=== PATIENT | female | born 1990 | race African-American/Black ===

== ENCOUNTER 2017-03-15 15:31 | Emergency (ER) | payer MEDICAID ==
--- NOTE | 2017-03-15 16:38 | ER Document Report ---
ED GI/ - General Chief Complaint: Abdominal Injury Stated Complaint: STOMACH PAIN Time Seen by Provider: 03/15/17 16:08 Notes: This is a pleasant 26-year-old female patient who was seen in the emergency department last night. Has 5 children at home. Did not have anybody else to watch the children so had to leave prior to the results of her pelvic ultrasound. Patient thinks that she is likely . Having some crampy lower abdominal pain. Denies any deep bleeding at this time. Does also have some pain in the epigastric region. No vomiting. Has had nausea on a daily basis. Never had a miscarriage. Has been 5 times and has 5 live births. TRAVEL OUTSIDE OF THE [place] IN LAST 30 DAYS: No - HPI Patient complains to provider of: Abdominal pain, Onset: Yesterday Timing/Duration: Gradual Quality of pain: Dull Severity at maximum: Moderate Severity in ED: Moderate Pain Level: 3 Location: Epigastric, Suprapubic Vaginal bleeding (Compared to normal period): None - Related Data Allergies/Adverse Reactions: No Known Allergies Allergy (Verified 03/15/17 15:34) Past Medical History - General Information source: Patient - Social History Smoking Status: Never Smoker Cigarette use (# per day): No Frequency of alcohol use: Rare Drug Abuse: None Lives with: Spouse/Significant other Family History: Reviewed & Not Pertinent Patient has suicidal ideation: No Patient has homicidal ideation: No - Past Medical History Cardiac Medical History: Reports: Hx Hypertension - gestiational Renal/ Medical History: Denies: Hx Peritoneal Dialysis Past Surgical History: Reports: Hx Section - x1 Review of Systems - Review of Systems Constitutional: denies: Fever, Malaise, Weakness EENT: denies: Eye pain, Eye discharge, Blurred vision, Throat pain, Difficulty swallowing, Mouth swelling Cardiovascular: denies: See HPI, Palpitations, Heart racing, Dyspnea, Syncope, Dizziness, Lightheaded Respiratory: denies: Cough, Hurts to breathe, Short of breath, Wheezing Gastrointestinal: Abdominal pain, Nausea, Vomiting. denies: Diarrhea Genitourinary: No symptoms reported Female Genitourinary: . denies: Heavy/abnormal periods, Irregular period, Vaginal discharge, Vaginal bleeding, Vaginal odor Musculoskeletal: denies: Back pain, Gout, Joint pain Skin: denies: Dryness, Lesions, Rash Hematologic/Lymphatic: denies: Anemia, Blood clots, Easy bleeding, Easy bruising Neurological/Psychological: denies: Weakness, Lost consciousness, Headaches, Numbness Physical Exam - Vital signs Vitals: Temp Pulse Resp BP Pulse Ox 99.6 F 72 16 132/86 H 100 03/15/17 15:48 03/15/17 15:48 03/15/17 15:48 03/15/17 15:48 03/15/17 15:48 Interpretation: Normal - General General appearance: Appears well, Alert - HEENT Head: Normocephalic, Atraumatic Eyes: Normal Pupils: PERRL - Respiratory Respiratory status: No respiratory distress Chest status: Nontender Breath sounds: Normal Chest palpation: Normal - Cardiovascular Rhythm: Regular Heart sounds: Normal auscultation Murmur: No - Abdominal Inspection: Normal Distension: No distension Bowel sounds: Normal Tenderness: Nontender Organomegaly: No organomegaly - Back Back: Normal, Nontender - Extremities General upper extremity: Normal inspection, Nontender, Normal color, Normal ROM , Normal temperature General lower extremity: Normal inspection, Nontender, Normal color, Normal ROM , Normal temperature, Normal weight bearing. No: Jade's sign - Neurological Neuro grossly intact: Yes Cognition: Normal Orientation: AAOx4 Abril Coma Scale Eye Opening: Spontaneous Abril Coma Scale Verbal: Oriented Abril Coma Scale Motor: Obeys Commands [place] Coma Scale Total: 15 Speech: Normal Motor strength normal: LUE, RUE, LLE, RLE Sensory: Normal - Psychological Associated symptoms: Normal affect, Normal mood - Skin Skin Temperature: Warm Skin Moisture: Dry Skin Color: Normal Course - Re-evaluation Re-evalutation: 03/15/17 20:38 Obstetrics Ultrasound 03/15/17 19:08 IMPRESSION: No IUP identified. 6 cm fluid collection in the right adnexa without color flow on Doppler interrogation, uncertain etiology. Mild cul-de- sac free fluid. 03/15/17 20:54 Patient vital signs are normal. And not an excruciating pain at this time. HCG level is 1000. Will need to have her hCG really tested on Saturday. I will give patient follow-up information for Dr. Samaniego and give strict warning signs with regards to ectopic. Patient seems reliable. This is not her first so she knows what to expect is 4 hours pain cramping and everything else. - Vital Signs Vital signs: Temp Pulse Resp BP Pulse Ox 99.6 F 72 18 132/86 H 100 03/15/17 15:48 03/15/17 15:48 03/15/17 17:00 03/15/17 15:48 03/15/17 15:48 - Laboratory Result Diagrams: 03/15/17 17:10 03/15/17 17:10 Laboratory results interpreted by me: 03/15/17 03/15/17 17:10 17:10 Hgb 10.5 L Hct 33.3 L MCV 70 L MCH 22.2 L MCHC 31.6 L RDW 19.9 H Sodium 136.4 L Beta HCG, Quant 1088.70 H Discharge - Discharge Clinical Impression: First trimester Condition: Good Disposition: HOME, SELF-CARE Additional Instructions: Ectopic Precaution An ultrasound was done and the was not seen in either the fallopian tubes or the uterus. It's possible you already had a miscarriage or that it's too early in your to see the fetus in the uterus. But the other possibility is that you have an ectopic (tubal) . Usually if an ectopic is too small to see, it's safe for you to go home. You should have a repeat quantitative HCG blood test. The level doubles every two days in normal pregnancies. If the level is falling rapidly, it means you've had a miscarriage. A repeat ultrasound in about a week may show the . If an ectopic is identified early, it can sometimes be treated without surgery. Return at once if you develop severe, sharp, and sudden pain in the lower abdomen, pain in the shoulder area, severe lightheadedness or fainting, or heavy bleeding (more than menstrual bleeding). Please return on Saturday for a repeat quantitative hCG level. Return sooner if symptoms are getting worse.
[2017-03-15 17:32] LABS: ABSOLUTE EOSINOPHILS # (AUTO) 0.2 10^3/uL (0.0-0.6); ABSOLUTE LYMPHOCYTES (AUTO) 1.9 10^3/uL (0.5-4.7); ABSOLUTE MONOCYTES (AUTO) 0.5 10^3/uL (0.1-1.4); ABSOLUTE NEUT (AUTO) 2.9 10^3/uL (1.7-8.2); BASOPHILS % (AUTO) 0.6 % (0-2); EOSINOPHILS % (AUTO) 3.3 % (0-6); HEMATOCRIT 33.3 % (36.0-47.0); HEMOGLOBIN 10.5 g/dL (12.0-15.5); LYMPHOCYTES % (AUTO) 34.6 % (13-45); MEAN CORPUSCULAR HEMOGLOBIN 22.2 pg (27.0-33.4); MEAN CORPUSCULAR HGB CONC 31.6 g/dL (32.0-36.0); MEAN CORPUSCULAR VOLUME 70 fl (80-97); MONOCYTES % (AUTO) 9.4 % (3-13); PLATELET COUNT 237 10^3/uL (150-450); RED BLOOD COUNT 4.74 10^6/uL (3.72-5.28); RED CELL DISTRIBUTION WIDTH 19.9 % (11.5-14.0); SEGMENTED NEUTROPHILS % (AUTO) 52.1 % (42-78); TOTAL CELLS COUNTED % (AUTO) 100 %; WHITE BLOOD COUNT 5.6 10^3/uL (4.0-10.5)
[2017-03-15 17:53] LABS: ALANINE AMINOTRANSFERASE 36 U/L (9-52); ALBUMIN 3.8 g/dL (3.5-5.0); ALKALINE PHOSPHATASE 57 U/L (38-126); ANION GAP 7 (5-19); ASPARTATE AMINO TRANSFERASE 23 U/L (14-36); BILIRUBIN,DIRECT 0.2 mg/dL (0.0-0.4); BILIRUBIN,TOTAL 0.4 mg/dL (0.2-1.3); BLOOD UREA NITROGEN 7 mg/dL (7-20); CALCIUM 9.4 mg/dL (8.4-10.2); CARBON DIOXIDE 25 mmol/L (22-30); CHLORIDE 104 mmol/L (98-107); GLUCOSE 85 mg/dL (75-110); LIPASE 77.2 U/L (23-300); POTASSIUM 3.8 mmol/L (3.6-5.0); SODIUM 136.4 mmol/L (137-145)
--- NOTE | 2017-03-15 20:14 | RADIOLOGY REPORT (SQ) ---
EXAM DESCRIPTION: U/S OB TRANSVAGINAL W/O DOP COMPLETED DATE/TIME: 03/15/2017 8:01 pm REASON FOR STUDY: worsenimg pelvic pain, + preg COMPARISON: None. TECHNIQUE: Dynamic and static grayscale images acquired of the pelvis via transvaginal approach and recorded on PACS. Additional selected color Doppler and spectral images recorded. LIMITATIONS: None. FINDINGS: UTERUS: Contour normal. No mass. ENDOMETRIAL STRIPE: No focal or generalized thickening. No masses. CERVIX: No nabothian cysts. RIGHT OVARY: Ovary not visualized. LEFT OVARY: Ovary not visualized. FREE FLUID: 6 cm fluid collection in the right adnexa without color flow on Doppler interrogation. M ild cul-de-sac free fluid. OTHER: No other significant finding. MEASUREMENTS: UTERUS: 11.4 x 4.6 x 6.6 cm ENDOMETRIAL STRIPE: 2.0 cm RIGHT OVARY: Not visualized. LEFT OVARY: Not visualized. IMPRESSION: No IUP identified. 6 cm fluid collection in the right adnexa without color flow on Doppl er interrogation, uncertain etiology. Mild cul-de-sac free fluid. TECHNICAL DOCUMENTATION: JOB ID: [id number] [place]-72 2010 [employer]- All Rights Reserved
[2017-03-15 21:13] VITALS: BP 134/99
== END 2017-03-15 21:13 | disposition home or self-care (01) ==
LOC: ER 15:31
DX: R10.30 Lower abdominal pain, unspecified (principal); R10.13 Epigastric pain
CPT/HCPCS: 36415; 76817; 80053; 83690; 84702; 85025; 86900; 86901; 99284

== ENCOUNTER 2017-09-26 23:49 | Emergency (ER) | payer MEDICAID ==
[2017-09-27 00:09] VITALS: BP 137/87
== END 2017-09-27 02:55 | disposition left against medical advice (07) ==
LOC: ER 23:49
DX: Z53.21 Procedure and treatment not carried out due to patient leaving prior to being seen by health care provider (principal)

== ENCOUNTER 2017-11-10 03:40 | Emergency (ER) | payer MEDICAID ==
[2017-11-10 03:47] VITALS: BP 142/96
[2017-11-10 06:13] LABS: APPEARANCE,URINE SLIGHTLY-CLOUDY; BILIRUBIN,URINE NEGATIVE (NEGATIVE); COLOR,URINE YELLOW; GLUCOSE, URINE NEGATIVE (NEGATIVE); KETONES,URINE TRACE mg/dL (NEGATIVE); LEUKOCYTE ESTERASE,URINE NEGATIVE (NEGATIVE); NITRITE,URINE NEGATIVE (NEGATIVE); PROTEIN,URINE NEGATIVE (NEGATIVE); URINE SPECIFIC GRAVITY 1.025
--- NOTE | 2017-11-10 09:11 | ER Document Report ---
ED GI/ - General Information source: Patient TRAVEL OUTSIDE OF THE [place] IN LAST 30 DAYS: No <ERIC LUNA - Last Filed: 11/10/17 09:11> <DAVIS HATFIELD - Last Filed: 11/10/17 14:57> - General Chief Complaint: Abdominal Pain Stated Complaint: ABDOMINAL PAIN Time Seen by Provider: 11/10/17 07:55 Notes: 27-year-old female who presents to the emergency department today with complaints of abdominal cramping that she compares to contractions beginning at 0100 this morning. Patient is not . Patient states she had a normal bowel yesterday. Patient states she does not have a history of ovarian cysts. Patient has associated nausea. Patient was sound asleep upon entry into room and is somewhat uncooperative with waking up. (ERIC LUNA) - Related Data Allergies/Adverse Reactions: No Known Allergies Allergy (Verified 03/15/17 15:34) Past Medical History - General Information source: Patient - Social History Smoking Status: Never Smoker Cigarette use (# per day): No Frequency of alcohol use: None Drug Abuse: None Lives with: Family Family History: Reviewed & Not Pertinent Patient has suicidal ideation: No Patient has homicidal ideation: No - Past Medical History Cardiac Medical History: Reports: Hx Hypertension - gestiational Renal/ Medical History: Denies: Hx Peritoneal Dialysis Past Surgical History: Reports: Hx Section - x1 <ERIC LUNA - Last Filed: 11/10/17 09:11> Review of Systems - Review of Systems Constitutional: No symptoms reported EENT: No symptoms reported Cardiovascular: No symptoms reported Respiratory: No symptoms reported Gastrointestinal: See HPI, Abdominal pain, Nausea Genitourinary: No symptoms reported Female Genitourinary: denies: Musculoskeletal: No symptoms reported Skin: No symptoms reported Hematologic/Lymphatic: No symptoms reported Neurological/Psychological: No symptoms reported -: Yes All other systems reviewed and negative <ERIC LUNA - Last Filed: 11/10/17 09:11> Physical Exam <ERIC LUNA - Last Filed: 11/10/17 09:11> <DAVIS HATFIELD - Last Filed: 11/10/17 14:57> - Vital signs Vitals: Temp Pulse Resp BP Pulse Ox 98.3 F 87 18 142/96 H 99 11/10/17 03:45 09/23/18 03:45 11/10/17 03:45 11/10/17 03:45 11/10/17 03:45 - Notes Notes: Physical Exam: General: Alert, sound asleep upon entry into room. Somewhat uncooperative with waking up, takes several minutes to roll over onto her back. States she would like the lights off as they are too bright for her. HEENT: Normocephalic. Atraumatic. PERRL. Extraocular movements intact. Oropharynx clear. Neck: Supple. Non-tender. Respiratory: No respiratory distress. Clear and equal breath sounds bilaterally. Cardiovascular: Regular rate and rhythm. Abdominal: Morbidly obese. Reports lower abdominal tenderness diffusely however pain seems to be localized to RLQ and Right pelvic area with palpation. No distension. Normal Bowel Sounds. Back: Non-tender. No deformity or step off. Extremities: Moves all four extremities. Upper extremities: Normal inspection. Normal ROM. Lower extremities: Normal inspection. No edema. Normal ROM. Neurological: Normal cognition. AAOx4. Normal speech. Psychological: Normal affect. Normal Mood. Skin: Warm. Dry. Normal color. (ERIC LUNA) Course <ERIC LUNA - Last Filed: 11/10/17 09:11> - Laboratory Result Diagrams: 11/10/17 09:30 11/10/17 09:30 <DAVIS HATFIELD - Last Filed: 11/10/17 14:57> - Re-evaluation Re-evalutation: 11/10/17 14:49 The patient presented only extremely busy day. I explained to her that much of the weight was due to labs and radiological studies, and much of it was due to myself due to being overwhelmed with sick patients requiring considerable amount of my time making it difficult to go back and repeatedly check to see if results were back. I did try to explain this to the patient but she really did not care about any other patients, or how sick they might be. She is only concerned about herself. When I first went in to see the patient this morning around 8 AM, she was sound asleep on her abdomen. It was difficult to get her to wake up, when I did get her awake she would not roll over for me to talk to her or to examine her for quite some time. Then she complained about lights being on a warm them off while I was trying to talk with her and do an exam. The cramps that she had had worked gallstone and had been for quite some time when she was first examined. She did have some tenderness in right lower quadrant and pelvic region. Acute abdominal series showed large amount of stool in the right colon and cecum, but that could be normal. The CBC, Chem-12 and urinalysis were unremarkable. The pelvic ultrasound was ordered, but there were several others being done on suspected miscarriages and suspected ectopic pregnancies. When she was informed about the so far negative workup and the recommendation to go to ultrasound to see if it may be an ovarian problem, she began shaking her head and stated she had to get to work. She then began to complain about waiting 6 hours for her results. I pointed out to her that it was less than 3 hours from the time that the blood was drawn and at that point she stated she was sensing hostility and wanted to talk to someone else. I exited the room at that time and let the nurse take over. (DAVIS HATFIELD) - Vital Signs Vital signs: Temp Pulse Resp BP Pulse Ox 98.3 F 87 18 142/96 H 99 11/10/17 03:45 11/10/17 03:45 11/10/17 03:45 11/10/17 03:45 11/10/17 03:45 - Laboratory Laboratory results interpreted by me: 11/10/17 11/10/17 11/10/17 05:10 09:30 09:30 Hgb 8.3 L Hct 26.4 L MCV 61 L MCH 19.1 L MCHC 31.5 L RDW 21.5 H Seg Neutrophils % 40.9 L Lymphocytes % 47.8 H Creatinine 0.49 L Urine Ketones TRACE H Urine Urobilinogen 2.0 H Urine Ascorbic Acid 40 H Discharge <ERIC LUNA - Last Filed: 11/10/17 09:11> <DAVIS HATFIELD - Last Filed: 11/10/17 14:57> - Discharge Clinical Impression: Right lower quadrant abdominal pain of unknown etiology Condition: Stable Disposition: AGAINST MEDICAL ADVICE Scribe Attestation: 11/10/17 12:42 I personally performed the services described in the documentation, reviewed and edited the documentation which was dictated to the scribe in my presence, and it accurately records my words and actions. (DAVIS HATFIELD) Scribe Documentation - Scribe Written by Scribe:: Carolina Vital, [id number] acting as scribe for :: Kehinde <ERIC LUNA - Last Filed: 11/10/17 09:11>
--- NOTE | 2017-11-10 09:17 | RADIOLOGY REPORT (SQ) ---
EXAM DESCRIPTION: ACUTE ABDOMEN SERIES COMPLETED DATE/TIME: 11/10/2017 9:06 am REASON FOR STUDY: Lower abdominal cramping COMPARISON: None. NUMBER OF VIEWS: Three views. TECHNIQUE: Frontal chest, supine abdomen and upright/decubitus abdomen radiographic images acquired. LIMITATIONS: None. FINDINGS: CHEST: Lungs clear of infiltrates. FREE AIR: None. No abnormal gas collections. BOWEL GAS PATTERN: Nonobstructive pattern. No dilated loops or air fluid levels. CALCIFICATIONS: No suspicious calcifications. HARDWARE: None in the abdomen. SOFT TISSUES: No gross mass or suggestion of organomegaly. BONES: No acute fracture. No worrisome bone lesions. OTHER: No other significant finding. IMPRESSION: NO RADIOGRAPHIC EVIDENCE FOR ACUTE ABDOMINAL DISEASE. TECHNICAL DOCUMENTATION: JOB ID: [id number] [employer]- All Rights Reserved Reading location - IP/workstation name: [email or web address]
[2017-11-10 10:00] LABS: ABSOLUTE BASOPHILS # (AUTO) 0.1 10^3/uL (0.0-0.2); ABSOLUTE EOSINOPHILS # (AUTO) 0.1 10^3/uL (0.0-0.6); ABSOLUTE LYMPHOCYTES (AUTO) 2.9 10^3/uL (0.5-4.7); ABSOLUTE MONOCYTES (AUTO) 0.5 10^3/uL (0.1-1.4); ABSOLUTE NEUT (AUTO) 2.4 10^3/uL (1.7-8.2); EOSINOPHILS % (AUTO) 1.7 % (0-6); HEMATOCRIT 26.4 % (36.0-47.0); HEMOGLOBIN 8.3 g/dL (12.0-15.5); LYMPHOCYTES % (AUTO) 47.8 % (13-45); MEAN CORPUSCULAR HEMOGLOBIN 19.1 pg (27.0-33.4); MEAN CORPUSCULAR HGB CONC 31.5 g/dL (32.0-36.0); MONOCYTES % (AUTO) 8.6 % (3-13); PLATELET COUNT 274 10^3/uL (150-450); RED BLOOD COUNT 4.36 10^6/uL (3.72-5.28); RED CELL DISTRIBUTION WIDTH 21.5 % (11.5-14.0); SEGMENTED NEUTROPHILS % (AUTO) 40.9 % (42-78); TOTAL CELLS COUNTED % (AUTO) 100 %
[2017-11-10 10:04] LABS: MEAN CORPUSCULAR VOLUME 61 fl (80-97)
[2017-11-10 10:11] LABS: ANISOCYTOSIS 3+; HYPOCHROMASIA 2+; POIKILOCYTOSIS 2+; POLYCHROMASIA SLIGHT
[2017-11-10 10:12] LABS: OVALOCYTES SLIGHT; PLATELET COMMENT ADEQUATE; PLATELET LARGE PRESENT; TARGET CELLS 1+; TEAR DROP CELLS 1+
[2017-11-10 10:17] LABS: ALANINE AMINOTRANSFERASE 30 U/L (9-52); ALBUMIN 3.6 g/dL (3.5-5.0); ALKALINE PHOSPHATASE 56 U/L (38-126); ANION GAP 6 (5-19); ASPARTATE AMINO TRANSFERASE 26 U/L (14-36); BILIRUBIN,DIRECT 0.4 mg/dL (0.0-0.4); BILIRUBIN,TOTAL 0.5 mg/dL (0.2-1.3); BLOOD UREA NITROGEN 15 mg/dL (7-20); CALCIUM 9.2 mg/dL (8.4-10.2); CARBON DIOXIDE 26 mmol/L (22-30); CHLORIDE 105 mmol/L (98-107); GLUCOSE 81 mg/dL (75-110); SODIUM 137.2 mmol/L (137-145); TOTAL PROTEIN 7.2 g/dL (6.3-8.2)
[2017-11-11 10:57] LABS: PATH REVIEW PATHOLOGIST REVIEWED
== END 2017-11-10 12:35 | disposition left against medical advice (07) ==
LOC: ER 03:40
DX: R10.31 Right lower quadrant pain (principal); R10.817 Generalized abdominal tenderness; R11.0 Nausea
CPT/HCPCS: 36415; 74022; 80053; 81001; 81025; 85025; 99284

== ENCOUNTER 2018-07-18 11:05 | Emergency (ER) | payer SELFPAY ==
--- NOTE | 2018-07-18 12:02 | ER Document Report ---
ED Medical Screen (RME) - General Chief Complaint: Pelvic Pain Stated Complaint: RIGHT SIDE PELVIC PAIN Time Seen by Provider: 07/18/18 11:59 TRAVEL OUTSIDE OF THE [place] IN LAST 30 DAYS: No - HPI Notes: 07/18/18 12:01 Patient is a 28-year-old female no significant past medical history aside from one who presents complaining of right lower pelvic pain that has been intermittent over the past year, but presented itself again over the past couple days. She currently does not have any pain. She is eating and drinking without difficulty. She is urinating normally and having normal bowel movements. Denies drug allergies. Denies LUQUE, fever, neck pain, URI, CP, SOB, dysuria, back pain, or rash. I have treated and performed a rapid initial assessment of this patient. A comprehensive ED assessment and evaluation of the patient, analysis of test results and completion of medical decision making process will be conducted by additional ED providers. PHYSICAL EXAMINATION: GENERAL: Well-appearing, well-nourished and in no acute distress. A&Ox4. Answers questions appropriately. LUNGS: Breath sounds clear to auscultation bilaterally and equal. No wheezes rales or rhonchi. HEART: Regular rate and rhythm without murmurs, rubs, gallops. ABDOMEN: Soft, nondistended abdomen. No guarding, no rebound. Normal bowel sounds present. No CVA tenderness bilaterally. Grossly nontender (cannot elicit thorough abd exam w/o bed, however). - Related Data Allergies/Adverse Reactions: No Known Allergies Allergy (Verified 07/18/18 11:06) Past Medical History - Past Medical History Cardiac Medical History: Reports: Hx Hypertension - gestiational Renal/ Medical History: Denies: Hx Peritoneal Dialysis Past Surgical History: Reports: Hx Section - x1 Physical Exam - Vital signs Vitals: Temp Pulse Resp BP Pulse Ox 98.5 F 75 14 145/98 H 99 07/18/18 11:16 07/18/18 11:16 07/18/18 11:16 07/18/18 11:16 07/18/18 11:16 Course - Vital Signs Vital signs: Temp Pulse Resp BP Pulse Ox 98.5 F 75 14 145/98 H 99 07/18/18 11:16 07/18/18 11:16 07/18/18 11:16 07/18/18 11:16 07/18/18 11:16
[2018-07-18 12:40] LABS: ABSOLUTE BASOPHILS # (AUTO) 0.1 10^3/uL (0.0-0.2); ABSOLUTE EOSINOPHILS # (AUTO) 0.1 10^3/uL (0.0-0.6); ABSOLUTE LYMPHOCYTES (AUTO) 2.5 10^3/uL (0.5-4.7); ABSOLUTE MONOCYTES (AUTO) 0.4 10^3/uL (0.1-1.4); BASOPHILS % (AUTO) 1.2 % (0-2); EOSINOPHILS % (AUTO) 2.5 % (0-6); HEMOGLOBIN 9.5 g/dL (12.0-15.5); LYMPHOCYTES % (AUTO) 49.1 % (13-45); MEAN CORPUSCULAR HEMOGLOBIN 19.2 pg (27.0-33.4); MEAN CORPUSCULAR HGB CONC 30.6 g/dL (32.0-36.0); MONOCYTES % (AUTO) 8.3 % (3-13); PLATELET COUNT 280 10^3/uL (150-450); RED BLOOD COUNT 4.94 10^6/uL (3.72-5.28); RED CELL DISTRIBUTION WIDTH 21.7 % (11.5-14.0); SEGMENTED NEUTROPHILS % (AUTO) 38.9 % (42-78); TOTAL CELLS COUNTED % (AUTO) 100 %; WHITE BLOOD COUNT 5.2 10^3/uL (4.0-10.5)
[2018-07-18 12:41] LABS: MEAN CORPUSCULAR VOLUME 63 fl (80-97)
[2018-07-18 13:06] LABS: ALANINE AMINOTRANSFERASE 21 U/L (9-52); ALKALINE PHOSPHATASE 66 U/L (38-126); ANION GAP 10 (5-19); ASPARTATE AMINO TRANSFERASE 23 U/L (14-36); BILIRUBIN,DIRECT 0.2 mg/dL (0.0-0.4); BILIRUBIN,TOTAL 0.4 mg/dL (0.2-1.3); BLOOD UREA NITROGEN 12 mg/dL (7-20); CALCIUM 9.3 mg/dL (8.4-10.2); CARBON DIOXIDE 25 mmol/L (22-30); CHLORIDE 107 mmol/L (98-107); GLUCOSE 106 mg/dL (75-110); SODIUM 141.9 mmol/L (137-145); TOTAL PROTEIN 7.9 g/dL (6.3-8.2)
[2018-07-18 13:07] LABS: ANISOCYTOSIS 3+; HYPOCHROMASIA 2+; PLATELET COMMENT ADEQUATE
--- NOTE | 2018-07-18 13:24 | RADIOLOGY REPORT (SQ) ---
EXAM DESCRIPTION: U/S NON OB PEL TV W/DOPPLER COMPLETED DATE/TIME: 07/18/2018 1:00 pm REASON FOR STUDY: Rt pelvic pain COMPARISON: None. TECHNIQUE: Dynamic and static grayscale images acquired of the pelvis via transvaginal approach and recorded on PACS. Additional selected color Doppler and spectral images recorded. LIMITATIONS: None. FINDINGS: UTERUS: Contour normal. No mass. ENDOMETRIAL STRIPE: No focal or generalized thickening. No masses. CERVIX: No nabothian cysts. RIGHT OVARY AND DOPPLER: Normal size. No worrisome masses. Normal arterial vascular flow without evid ence for torsion. LEFT OVARY AND DOPPLER: Ovary not visualized. FREE FLUID: None noted. OTHER: No other significant finding. IMPRESSION: NORMAL TRANSVAGINAL PELVIC ULTRASOUND. TECHNICAL DOCUMENTATION: JOB ID: [id number] [employer]- All Rights Reserved Rev-07/05 Reading location - IP/workstation name: [email or web address]
[2018-07-18 13:33] LABS: APPEARANCE,URINE SLIGHTLY-CLOUDY; BILIRUBIN,URINE NEGATIVE (NEGATIVE); COLOR,URINE YELLOW; GLUCOSE, URINE NEGATIVE (NEGATIVE); KETONES,URINE NEGATIVE (NEGATIVE); LEUKOCYTE ESTERASE,URINE NEGATIVE (NEGATIVE); NITRITE,URINE NEGATIVE (NEGATIVE); PROTEIN,URINE NEGATIVE (NEGATIVE); URINE SPECIFIC GRAVITY 1.019; UROBILINOGEN,URINE NEGATIVE mg/dL (<2.0)
--- NOTE | 2018-07-18 14:49 | ER Document Report ---
ED GI/ - General Chief Complaint: Pelvic Pain Stated Complaint: RIGHT SIDE PELVIC PAIN Time Seen by Provider: 07/18/18 11:59 Notes: Patient is a 21-year-old female comes emergency room complaining of abnormal vaginal bleeding and right pelvic pain. The pelvic pain is been coming and going for the past year and currently does not have any pain. She states that her last menstrual. Was on the 26 of this month and only lasted one day. She states that that is an unusual event for her but presently she is in no pain no distress and was really just wondering if we could figure out what was causing her intermittent right lower pelvic pain. She denies any nausea vomiting or diarrhea she denies any other past medical history. She denies any vaginal discharge. TRAVEL OUTSIDE OF THE [place] 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 Menstrual period history: Abnormal LMP: 07/13/2018 OB ultrasound done: Yes vitamins taken: No Sexual history: Active Associated symptoms: denies: Painful intercourse, Radiates to back Exacerbated by: Denies Relieved by: Denies Similar symptoms previously: Yes Recently seen / treated by doctor: No - Related Data Allergies/Adverse Reactions: No Known Allergies Allergy (Verified 07/18/18 11:06) Past Medical History - General Information source: Patient Last Menstrual Period: 07/13/18 - Social History Smoking Status: Unknown if Ever Smoked Chew tobacco use (# tins/day): No Frequency of alcohol use: None Drug Abuse: None Family History: Reviewed & Not Pertinent Patient has suicidal ideation: No Patient has homicidal ideation: No - Past Medical History Cardiac Medical History: Reports: Hx Hypertension - gestiational Renal/ Medical History: Denies: Hx Peritoneal Dialysis Past Surgical History: Reports: Hx Section - x1 Review of Systems - Review of Systems Constitutional: No symptoms reported EENT: No symptoms reported Cardiovascular: No symptoms reported Respiratory: No symptoms reported Gastrointestinal: No symptoms reported Genitourinary: No symptoms reported Female Genitourinary: See HPI, Last menstrual period, Irregular period Musculoskeletal: No symptoms reported Skin: No symptoms reported Hematologic/Lymphatic: No symptoms reported Neurological/Psychological: No symptoms reported -: Yes All other systems reviewed and negative Physical Exam - Vital signs Vitals: Temp Pulse Resp BP Pulse Ox 98.5 F 75 14 145/98 H 99 07/18/18 11:16 07/18/18 11:16 07/18/18 11:16 07/18/18 11:16 07/18/18 11:16 Interpretation: Hypertensive - Notes Notes: PHYSICAL EXAMINATION: GENERAL: Well-appearing, well-nourished and in no acute distress. HEAD: Atraumatic, normocephalic. EYES: Pupils equal round and reactive to light, extraocular movements intact, conjunctiva are normal. ENT: Nares patent, oropharynx clear without exudates. Moist mucous membranes. NECK: Normal range of motion, supple without lymphadenopathy LUNGS: Breath sounds clear to auscultation bilaterally and equal. No wheezes rales or rhonchi. HEART: Regular rate and rhythm without murmurs ABDOMEN: Soft, nontender, nondistended abdomen. No guarding, no rebound. No masses appreciated. Female : deferred Musculoskeletal: Normal range of motion, no pitting or edema. No cyanosis. NEUROLOGICAL: Normal speech, normal gait. Normal sensory, motor exams PSYCH: Normal mood, normal affect. SKIN: Warm, Dry, normal turgor, no rashes or lesions noted. Course - Re-evaluation Re-evalutation: 07/18/18 14:50 Patient stating there is been uneventful. And basically she tells me she is here because she wanted to figure out if we could find out why she is had some off-and-on pelvic pain. She denies any discharge or any other symptomatology. Ultrasound was negative for any acute findings. Her urine came back with some blood in it which is probably microscopic however large enough that it still could be here.. She did not want to have a pelvic exam today. I am giving her a follow-up number with [facility] and she will contact them for her yearly Pap. She is just moved to this area and does not have a local [facility]. - Vital Signs Vital signs: Temp Pulse Resp BP Pulse Ox 98.5 F 75 14 145/98 H 99 07/18/18 11:16 07/18/18 11:16 07/18/18 11:16 07/18/18 11:16 07/18/18 11:16 - Laboratory Result Diagrams: 07/18/18 12:10 07/18/18 12:10 Laboratory results interpreted by me: 07/18/18 07/18/18 07/18/18 12:10 12:10 12:59 Hgb 9.5 L Hct 31.0 L MCV 63 L MCH 19.2 L MCHC 30.6 L RDW 21.7 H Seg Neutrophils % 38.9 L Lymphocytes % 49.1 H Creatinine 0.50 L Urine Ascorbic Acid 40 H Discharge - Discharge Clinical Impression: Pelvic pain Condition: Stable Disposition: HOME, SELF-CARE Instructions: Pelvic Pain ([facility]) Additional Instructions: Home and rest. As we discussed contact [facility] which is a [facility] facility the will normally take most of our patients that we refer to over there. Highly suggest follow-up with them as soon as possible since this sounds is been going on for over a year. Currently on telemetry there is nothing that is dramatic and that we will harm you currently. Highly suggest you that if he should have open vaginal bleeding where it is continuous and going through multiple pads or you have increasing pain or fever return to ER in the meantime have a recheck. Forms: Elevated Blood Pressure, Return to Work, Return to School Referrals: HÉCTOR MEREDITH MD [ACTIVE STAFF] - Follow up as needed
[2018-07-18 14:50] VITALS: BP 154/98
[2018-07-21 13:48] LABS: PATH REVIEW PATHOLOGIST REVIEWED
== END 2018-07-18 14:58 | disposition home or self-care (01) ==
LOC: ER 11:05
DX: R10.2 Pelvic and perineal pain (principal); N92.6 Irregular menstruation, unspecified; R31.9 Hematuria, unspecified
CPT/HCPCS: 36415; 76830; 80053; 81001; 81025; 85025; 93976; 99284

== ENCOUNTER 2018-07-29 17:09 | Emergency (ER) | payer SELFPAY ==
[2018-07-29] MEDS ORDERED: DEXAMETHASONE SOD PHOS INJ 10 MG/1 ML VIAL IM ONE (17:39)
--- NOTE | 2018-07-29 17:41 | ER Document Report ---
ED Medical Screen (RME) - General Chief Complaint: Difficulty Swallowing Stated Complaint: SORE THROAT Time Seen by Provider: 07/29/18 17:35 TRAVEL OUTSIDE OF THE [place] IN LAST 30 DAYS: No - HPI Notes: 07/29/18 17:39 Patient is a 28-year-old female no significant past medical history aside from anemia who presents complaining of sore throat, swollen tonsils, and some fatigue that began yesterday. She is able to eat and drink, but does have a decreased p.o. intake due to the pain. She is urinating normally. Denies drug allergies. No history of peritonsillar/pharyngeal abscess. Denies LUQUE, fever, neck pain, URI, CP, SOB, Abd pain, dysuria, back pain, or rash. I have treated and performed a rapid initial assessment of this patient. A comprehensive ED assessment and evaluation of the patient, analysis of test results and completion of medical decision making process will be conducted by additional ED providers. PHYSICAL EXAMINATION: GENERAL: Well-appearing, well-nourished and in no acute distress. A&Ox4. Answers questions appropriately. Moves comfortably w/o notable distress ENT: EAC clear b/l. TM's intact b/l without erythema, fluid, or perforation. Nares patent and with clear discharge. oropharynx erythema without exudates. 3+ tonsilar hypertrophy with erythema no exudate. No palatine shift. Uvula grossly midline. No tongue protrusion. No drooling or airway compromise. Moist mucous membranes. No sinus tenderness. NECK: Normal range of motion, supple without lymphadenopathy. No rigidity/meningismus. LUNGS: Breath sounds clear to auscultation bilaterally and equal. No wheezes rales or rhonchi. No retractions HEART: Regular rate and rhythm without murmurs, rubs, gallops. - Related Data Allergies/Adverse Reactions: No Known Allergies Allergy (Verified 07/29/18 17:31) Past Medical History - Social History Frequency of alcohol use: None Drug Abuse: None - Past Medical History Cardiac Medical History: Reports: Hx Hypertension - gestiational Renal/ Medical History: Denies: Hx Peritoneal Dialysis Past Surgical History: Reports: Hx Section - x1 Physical Exam - Vital signs Vitals: Temp Pulse Resp BP Pulse Ox 98.9 F 85 16 150/91 H 100 07/29/18 17:29 07/29/18 17:29 07/29/18 17:29 07/29/18 17:29 07/29/18 17:29 Course - Vital Signs Vital signs: Temp Pulse Resp BP Pulse Ox 98.9 F 85 16 150/91 H 100 07/29/18 17:29 07/29/18 17:29 07/29/18 17:29 07/29/18 17:29 07/29/18 17:29
[2018-07-29] MEDS ORDERED: ACETAMINOPHEN 325 MG TABLET PO ONE (19:14)
[2018-07-29] MEDS ORDERED: PENICILLIN G BENZATHINE 1.2 MILLION UNIT/2 ML DISP.SYRIN IM ONE (19:14)
--- NOTE | 2018-07-29 19:17 | ER Document Report ---
HPI - HPI Patient complains to provider of: sore throat Time Seen by Provider: 07/29/18 17:35 Onset: Yesterday Onset/Duration: Gradual Quality of pain: Achy Pain Level: 5 Context: Patient presents complaining of sore throat that started yesterday. Patient denies any fever. Associated Symptoms: Sore throat. denies: Earache, Fever, Nausea Exacerbated by: Denies Relieved by: Denies Similar symptoms previously: No Recently seen / treated by doctor: No - ROS ROS below otherwise negative: Yes Systems Reviewed and Negative: Yes All other systems reviewed and negative - CONSTITUTIONAL Constitutional: DENIES: Fever - EENT EENT: REPORTS: Sore Throat - RESPIRATORY Respiratory: DENIES: Coughing - GASTROINTESTINAL Gastrointestinal: DENIES: Nausea, Patient vomiting - REPRODUCTIVE Reproductive: DENIES: : - DERM Skin Color: Normal Skin Problems: None Past Medical History - General Information source: Patient - Social History Smoking Status: Never Smoker Frequency of alcohol use: None Drug Abuse: None Occupation: Foodservice Family History: Reviewed & Not Pertinent Patient has suicidal ideation: No Patient has homicidal ideation: No - Past Medical History Cardiac Medical History: Reports: Hx Hypertension - gestiational Renal/ Medical History: Denies: Hx Peritoneal Dialysis Past Surgical History: Reports: Hx Section - x1 Vertical Provider Document - CONSTITUTIONAL Agree With Documented VS: Yes Exam Limitations: No Limitations General Appearance: WD/WN, No Apparent Distress - INFECTION CONTROL TRAVEL OUTSIDE OF THE [place] IN LAST 30 DAYS: No - HEENT HEENT: Atraumatic, Normocephalic, Pharyngeal Tenderness, Pharyngeal Erythema. negative: Pharyngeal Exudate, Tympanic Membrane Red, Tympanic Membrane Bulging - NECK Neck: Normal Inspection, Supple. negative: Lymphadenopathy-Left, Lymphadenopathy-Right - RESPIRATORY Respiratory: Breath Sounds Normal, No Respiratory Distress - CARDIOVASCULAR Cardiovascular: Regular Rate, Regular Rhythm - BACK Back: Normal Inspection - MUSCULOSKELETAL/EXTREMETIES Musculoskeletal/Extremeties: OLGA LIDIA ONEILL - NEURO Level of Consciousness: Awake, Alert, Appropriate Motor/Sensory: No Motor Deficit - DERM Integumentary: Warm, Dry, No Rash Course - Re-evaluation Re-evalutation: 07/29/18 19:15 Patient with positive strep test, no concern for mono. No peritonsillar abscess. Patient able to manage oral secretions. - Vital Signs Vital signs: Temp Pulse Resp BP Pulse Ox 98.9 F 85 16 150/91 H 100 07/29/18 17:29 07/29/18 17:29 07/29/18 17:29 07/29/18 17:29 07/29/18 17:29 Discharge - Discharge Clinical Impression: Strep throat Condition: Stable Disposition: HOME, SELF-CARE Instructions: Acetaminophen, Antibiotic Shot ([facility]), Steroid Medication, Strep Throat ([facility]) Additional Instructions: Return immediately for any new or worsening symptoms Followup with your primary care provider, call tomorrow to make a followup appointment Increase oral fluids and stay well-hydrated Prescriptions: Naproxen [Naprosyn 250 Nmg Tablet] 1 tab PO BID #14 tablet Forms: Return to Work Referrals: [facility] [Provider Group] - Follow up as needed
[2018-07-29 19:37] VITALS: BP 137/91
== END 2018-07-29 19:43 | disposition home or self-care (01) ==
LOC: ER 17:09
DX: J02.0 Streptococcal pharyngitis (principal)
CPT/HCPCS: 99283; 96372; 36415; 87880; 86308; J0561; J1100

== ENCOUNTER 2019-05-08 08:42 | Emergency (ER) | payer SELFPAY ==
--- NOTE | 2019-05-08 08:58 | ER Document Report ---
ED Oral Problem - General Chief Complaint: Toothache Stated Complaint: TOOTH PAIN Time Seen by Provider: 05/08/19 08:52 Mode of Arrival: Ambulatory Information source: Patient - This is a 29-year-old female presented to the emergency room today stating that she did have an appointment today with a dentist who closed his office due to the coronavirus. She has pain to the left rear molar superior and inferiorly they both have dental fractures. TRAVEL OUTSIDE OF THE [place] IN LAST 30 DAYS: No - Related Data Allergies/Adverse Reactions: No Known Allergies Allergy (Verified 05/08/19 08:54) Past Medical History - General Information source: Patient - Social History Smoking Status: Current Every Day Smoker Chew tobacco use (# tins/day): No Smoking Education Provided: Yes Frequency of alcohol use: Rare Family History: Reviewed & Not Pertinent - Past Medical History Cardiac Medical History: Reports: Hx Hypertension - gestiational Renal/ Medical History: Denies: Hx Peritoneal Dialysis Past Surgical History: Reports: Hx Section - x1 Review of Systems - Review of Systems Constitutional: No symptoms reported EENT: No symptoms reported, Dental problem Cardiovascular: No symptoms reported Respiratory: No symptoms reported Gastrointestinal: No symptoms reported Genitourinary: No symptoms reported Musculoskeletal: No symptoms reported Physical Exam - Vital signs Interpretation: Normal - General General appearance: Appears well, Alert - HEENT Head: Normocephalic, Atraumatic Eyes: Normal Pupils: PERRL Mouth/Lips: Caries, Dental fracture - Respiratory Respiratory status: No respiratory distress Chest status: Nontender Breath sounds: Normal Chest palpation: Normal - Cardiovascular Rhythm: Regular Heart sounds: Normal auscultation Murmur: No - Abdominal Inspection: Normal Distension: No distension Bowel sounds: Normal Tenderness: Nontender Organomegaly: No organomegaly - Back Back: Normal, Nontender - Extremities General upper extremity: Normal inspection, Nontender, Normal color, Normal ROM, Normal temperature General lower extremity: Normal inspection, Nontender, Normal color, Normal ROM, Normal temperature, Normal weight bearing. No: Jade's sign - Neurological Neuro grossly intact: Yes Cognition: Normal Orientation: AAOx4 [place] Coma Scale Eye Opening: Spontaneous [place] Coma Scale Verbal: Oriented [place] Coma Scale Motor: Obeys Commands [place] Coma Scale Total: 15 Speech: Normal Motor strength normal: LUE, RUE, LLE, RLE Sensory: Normal - Psychological Associated symptoms: Normal affect, Normal mood - Skin Skin Temperature: Warm Skin Moisture: Dry Skin Color: Normal Discharge - Discharge Clinical Impression: Dental abscess Disposition: HOME, SELF-CARE Instructions: Penicillin V K ([facility]), Toothache ([facility]) Additional Instructions: Salt water gargles 4-5 times a day. Increase fluid intake rest. Return to the emergency room for any change worsening condition. Prescriptions: Naproxen Sodium [Naproxen Sodium ER] 500 mg PO Q12 PRN #20 tablet.sa PRN Reason: Penicillin V Potassium [Penicillin Vk 500 mg Tablet] 500 mg PO BID #20 tablet Tramadol HCl [Ultram] 50 mg PO TID PRN #20 tablet PRN Reason: Referrals: [facility] [Provider Group] - Follow up as needed
[2019-05-08 08:59] VITALS: BP 161/102
== END 2019-05-08 09:00 | disposition home or self-care (01) ==
LOC: ER 08:42
DX: K04.7 Periapical abscess without sinus (principal); F17.200 Nicotine dependence, unspecified, uncomplicated
CPT/HCPCS: 99282